=== PATIENT | female | born 1990 | race Caucasian/White ===

== ENCOUNTER 2019-10-09 10:34 | Observation (INO) | payer OTHER ==
[~2019-10-09] VITALS: Ht 172.7 cm; Wt 112.0 kg
== END 2019-10-09 11:50 | disposition home or self-care (01) ==
LOC: SPU 10:34
PROVIDERS: ADMIT Specialist; ATTEND Specialist
DX: Z34.83 Encounter for supervision of other normal pregnancy, third trimester (principal); Z3A.35 35 weeks gestation of pregnancy
CPT/HCPCS: G0378

== ENCOUNTER 2019-10-16 08:12 | Observation (INO) | payer OTHER ==
[~2019-10-16] VITALS: Ht 172.7 cm; Wt 112.5 kg
== END 2019-10-16 09:15 | disposition home or self-care (01) ==
LOC: SPU 08:12
PROVIDERS: ADMIT Specialist; ATTEND Specialist
DX: O24.913 Unspecified diabetes mellitus in pregnancy, third trimester (principal); O16.3 Unspecified maternal hypertension, third trimester; Z3A.35 35 weeks gestation of pregnancy
CPT/HCPCS: 59025; 81002; G0378

== ENCOUNTER 2019-10-23 08:41 | Observation (INO) | payer OTHER ==
[~2019-10-23] VITALS: Ht 172.7 cm; Wt 112.5 kg
[2019-10-23 09:57] LABS: BILIRUBIN,URINE NEGATIVE (NEGATIVE); BLOOD, URINE NEGATIVE (NEGATIVE); CLARITY/URINE SL CLOUDY (CLEAR); COLOR,URINE YELLOW (YELLOW); GLUCOSE,URINE NEGATIVE (NEGATIVE); KETONES,URINE NEGATIVE (NEGATIVE); LEUKOCYTE ESTERASE ,URINE NEGATIVE (NEGATIVE); NITRITE, URINE NEGATIVE (NEGATIVE); PROTEIN URINE 2+ (NEGATIVE); UROBILINOGEN,URINE 0.2 (0.2-1.0)
[2019-10-23 10:47] LABS: BACTERIA,URINE FEW /HPF (None Seen); RBC,URINE 0-3 /HPF (0-3); WBC,URINE 0-3 /HPF (0-3)
[2019-10-23] MEDS ORDERED: LABETALOL HCL 100 MG TABLET PO ONE (11:45)
[2019-10-23 12:23] LABS: BASOPHILS % (AUTO) 0.2 % (0.0-2.0); EOSINOPHILS # (AUTO) 0.1 K/uL (0.0-0.4); EOSINOPHILS % (AUTO) 0.8 % (0.0-4.0); HEMOGLOBIN 11.2 g/dL (12.0-16.0); LYMPHOCYTES # (AUTO) 2.4 K/uL (1.0-5.5); LYMPHOCYTES % (AUTO) 17.4 % (20.5-51.5); MEAN CORPUSCULAR HEMOGLOBIN 28 pg (27-31); MEAN CORPUSCULAR HGB CONC 33 % (32-36); MEAN CORPUSCULAR VOLUME 84 fL (79.0-98.0); MONOCYTES # (AUTO) 0.9 K/uL (0.0-1.0); MONOCYTES % (AUTO) 6.5 % (1.7-9.3); NEUTROPHILS # (AUTO) 10.3 K/uL (1.8-7.7); NEUTROPHILS % (AUTO) 75.1 % (40.0-70.0); PLATELET COUNT (AUTO) 324 K/uL (130-430); RED BLOOD CELL COUNT(AUTO) 4.05 MIL/uL (4.2-6.2); RED CELL DISTRIBUTION WIDTH 14.3 % (9.0-15.0); WHITE BLOOD COUNT (AUTO) 13.6 K/uL (4.8-10.8)
[2019-10-23 12:50] LABS: INR 0.9 (0.8-1.2); PROTHROMBIN TIME 9.1 SECS (9.5-12.5)
[2019-10-23 12:53] LABS: ALBUMIN 2.4 g/dL (3.4-4.8); CALCIUM 8.7 mg/dL (8.4-11.0); CREATININE 0.87 mg/dL (0.55-1.30); POTASSIUM 4.2 mmol/L (3.5-5.1); TOTAL BILIRUBIN 0.2 mg/dL (0.0-1.0); URIC ACID 7.1 mg/dL (2.4-7.0)
== END 2019-10-23 14:05 | disposition home or self-care (01) ==
LOC: SPU 08:41
PROVIDERS: ADMIT Specialist; ATTEND Specialist
DX: Z03.818 Encounter for observation for suspected exposure to other biological agents ruled out (principal); O24.419 Gestational diabetes mellitus in pregnancy, unspecified control; O13.3 Gestational [pregnancy-induced] hypertension without significant proteinuria, third trimester; O62.9 Abnormality of forces of labor, unspecified; Z3A.36 36 weeks gestation of pregnancy
CPT/HCPCS: 36415; 80053; 81000; 84550; 85025; 85610; 85730; G0378; U0003

== ENCOUNTER 2019-10-24 15:04 | Observation (INO) | payer OTHER ==
[~2019-10-24] VITALS: Ht 172.7 cm; Wt 112.5 kg
[2019-10-24 18:03] LABS: CREATININE 0.87 mg/dL (0.55-1.30)
[2019-10-24 23:53] LABS: CREATININE,URINE 82.1 MG/DL (30-125)
[2019-10-24 23:54] LABS: CREATININE CLEARANCE,URINE 110.8 ml/min (80-120); TPROTEIN U,24HR 1612.5 mg/24HR (0-130)
== END 2019-10-24 16:45 | disposition home or self-care (01) ==
LOC: SPU 15:04
PROVIDERS: ADMIT Specialist; ATTEND Specialist
DX: Z34.83 Encounter for supervision of other normal pregnancy, third trimester (principal); Z3A.37 37 weeks gestation of pregnancy
CPT/HCPCS: 36415; 82575; 84156; G0378

== ENCOUNTER 2019-10-27 13:33 | Inpatient (IN) | payer OTHER ==
[~2019-10-27] VITALS: Ht 0.1 cm; Wt 0.0 kg
[2019-10-27] MEDS ORDERED: CEFAZOLIN 2 GM IVPB PREMIX 50 ML IV ONE (14:30)
[2019-10-27 15:12] LABS: BASOPHILS % (AUTO) 0.3 % (0.0-2.0); EOSINOPHILS # (AUTO) 0.1 K/uL (0.0-0.4); EOSINOPHILS % (AUTO) 0.8 % (0.0-4.0); HEMATOCRIT 36.6 % (36-48); LYMPHOCYTES % (AUTO) 20.3 % (20.5-51.5); MEAN CORPUSCULAR HEMOGLOBIN 28 pg (27-31); MEAN CORPUSCULAR HGB CONC 33 % (32-36); MEAN CORPUSCULAR VOLUME 84 fL (79.0-98.0); MONOCYTES # (AUTO) 0.9 K/uL (0.0-1.0); MONOCYTES % (AUTO) 5.9 % (1.7-9.3); NEUTROPHILS # (AUTO) 10.7 K/uL (1.8-7.7); NEUTROPHILS % (AUTO) 72.7 % (40.0-70.0); PLATELET COUNT (AUTO) 365 K/uL (130-430); RED BLOOD CELL COUNT(AUTO) 4.35 MIL/uL (4.2-6.2); RED CELL DISTRIBUTION WIDTH 14.7 % (9.0-15.0); WHITE BLOOD COUNT (AUTO) 14.7 K/uL (4.8-10.8)
[2019-10-27 17:08] LABS: BILIRUBIN,URINE NEGATIVE (NEGATIVE); CLARITY/URINE CLEAR (CLEAR); COLOR,URINE YELLOW (YELLOW); GLUCOSE,URINE NEGATIVE (NEGATIVE); KETONES,URINE NEGATIVE (NEGATIVE); LEUKOCYTE ESTERASE ,URINE NEGATIVE (NEGATIVE); NITRITE, URINE NEGATIVE (NEGATIVE); PROTEIN URINE 2+ (NEGATIVE); UROBILINOGEN,URINE 0.2 (0.2-1.0)
[2019-10-27 17:15] LABS: BLOOD, URINE TRACE (NEGATIVE)
[2019-10-27 17:26] LABS: BACTERIA,URINE FEW /HPF (None Seen); MUCUS,URINE None Seen /LPF (None Seen); RBC,URINE 0-3 /HPF (0-3)
[2019-10-27] MEDS ORDERED: NALBUPHINE HCL 10 MG/ML AMP IVP PRN (18:00)
[2019-10-27] MEDS ORDERED: DIPHENHYDRAMINE INJ 50 MG/ML VIAL IVP PRN (18:00)
[2019-10-27] MEDS ORDERED: KETOROLAC TROMETHAMINE 60 MG/2 ML VIAL IM PRN (18:00)
[2019-10-27] MEDS ORDERED: fentaNYL CITRATE/PF 100 MCG/2 ML AMP IVP PRN ×2 (18:00)
[2019-10-27] MEDS ORDERED: NALOXONE HCL 0.4 MG/ML AMP (NARCAN) IVP PRN ×2 (18:00)
[2019-10-27] MEDS ORDERED: MORPHINE SULFATE 10MG/10ML PF AMP SP SCH (18:00)
[2019-10-27 18:57] VITALS: BP_SYST 139
[2019-10-27] MEDS ORDERED: OXYTOCIN/0.9 % SODIUM CHLORIDE 1,000 ML IV ONE ×2 (20:08→21:02)
[2019-10-27] MEDS: LABETALOL HCL 100 MG TABLET PO SCH (20:57)
[2019-10-27] MEDS ORDERED: SENNOSIDES/DOCUSATE SODIUM 1 TAB TABLET(SENOKOT-S) PO PRN (21:15)
[2019-10-27] MEDS ORDERED: TEMAZEPAM 15 MG CAPSULE PO PRN (21:15)
[2019-10-27] MEDS ORDERED: BISACODYL 10 MG/SUPPOSITORY RC PRN (21:15)
[2019-10-27] MEDS ORDERED: HYDROcodone/ACETAMIN 5-325 MG TAB (NORCO/ VICODIN) PO PRN (21:15)
[2019-10-27] MEDS ORDERED: OXYCODONE/ACETAMINOPHEN 5-325 TABLET PO PRN ×2 (21:15)
[2019-10-27] MEDS ORDERED: DIPH-TET-PERTUS Vaccine 0.5 ML VIAL (ADACEL) I.M. PRN (21:15)
[2019-10-27] MEDS ORDERED: MEASLES,MUMPS&RUBELLA VACC/PF 12500 UNIT/0.5 ML VIAL SUBQ PRN (21:15)
[2019-10-27] MEDS ORDERED: DOCUSATE SODIUM 100 MG CAPSULE PO PRN (21:15)
[2019-10-27] MEDS ORDERED: LANOLIN 7 GM OINT. TP PRN (21:15)
[2019-10-27] MEDS ORDERED: ANUSOL 1 EA SUPP.RECT (PREPARATION H) RC PRN (21:15)
[2019-10-27] MEDS: ONDANSETRON HCL 4 MG/2 ML VIAL IVP PRN (23:21)
[2019-10-28] MEDS ORDERED: LABETALOL 100 MG/ 20ML VIAL IVP ONE
[2019-10-28] MEDS: LR 1,000 ML IV SCH ×2 (04:30→14:25)
[2019-10-28] MEDS: ONDANSETRON HCL 4 MG/2 ML VIAL IVP PRN (07:31)
[2019-10-28 08:02] LABS: BASOPHILS % (AUTO) 0.2 % (0.0-2.0); EOSINOPHILS % (AUTO) 0.2 % (0.0-4.0); HEMATOCRIT 33.4 % (36-48); HEMOGLOBIN 11.1 g/dL (12.0-16.0); LYMPHOCYTES # (AUTO) 1.9 K/uL (1.0-5.5); LYMPHOCYTES % (AUTO) 12.4 % (20.5-51.5); MEAN CORPUSCULAR HEMOGLOBIN 28 pg (27-31); MEAN CORPUSCULAR HGB CONC 33 % (32-36); MEAN CORPUSCULAR VOLUME 85 fL (79.0-98.0); MONOCYTES % (AUTO) 6.4 % (1.7-9.3); NEUTROPHILS # (AUTO) 12.6 K/uL (1.8-7.7); NEUTROPHILS % (AUTO) 80.8 % (40.0-70.0); PLATELET COUNT (AUTO) 323 K/uL (130-430); RED BLOOD CELL COUNT(AUTO) 3.92 MIL/uL (4.2-6.2); RED CELL DISTRIBUTION WIDTH 15.1 % (9.0-15.0); WHITE BLOOD COUNT (AUTO) 15.6 K/uL (4.8-10.8)
[2019-10-28] MEDS ORDERED: metFORMIN HCL 500 MG TABLET PO SCH (09:00)
[2019-10-28] MEDS: LABETALOL HCL 100 MG TABLET PO SCH ×2 (09:05→19:58)
[2019-10-28] MEDS: metFORMIN HCL 500 MG TABLET PO SCH ×2 (10:07→19:59)
[2019-10-28] MEDS: SIMETHICONE 80 MG TAB.CHEW PO PRN ×3 (13:11→19:57)
[2019-10-28] MEDS: IBUPROFEN 600 MG TABLET PO SCH ×2 (13:19→18:20)
[2019-10-29] MEDS: IBUPROFEN 600 MG TABLET PO SCH ×2 (05:45)
[2019-10-29] MEDS: LABETALOL HCL 100 MG TABLET PO SCH (09:31)
[2019-10-29] MEDS: metFORMIN HCL 500 MG TABLET PO SCH (09:37)
== END 2019-10-29 10:30 | disposition home or self-care (01) | DRG 786 ==
LOC: SPU 14:20
PROVIDERS: ADMIT Specialist; ATTEND Specialist
PROC: 10D00Z1 Extraction of Products of Conception, Low, Open Approach (ICD-10-PCS; principal; 2019-10-27 14:00)
DX: O36.63X0 Maternal care for excessive fetal growth, third trimester, not applicable or unspecified (principal); O24.12 Pre-existing type 2 diabetes mellitus, in childbirth; O44.13 Complete placenta previa with hemorrhage, third trimester; O40.3XX0 Polyhydramnios, third trimester, not applicable or unspecified; O99.214 Obesity complicating childbirth; E66.9 Obesity, unspecified; O69.9XX0 Labor and delivery complicated by cord complication, unspecified, not applicable or unspecified; E11.9 Type 2 diabetes mellitus without complications; O16.4 Unspecified maternal hypertension, complicating childbirth; Z37.0 Single live birth; Z3A.37 37 weeks gestation of pregnancy; Z79.4 Long term (current) use of insulin
CPT/HCPCS: 36415; 81000-TC; 82947-TC; 82962; 85025; 86886; 86900; 86901; 94760; J0690; J1200; J2405; J2590; J3490; J7120

== ENCOUNTER 2020-02-03 09:31 | Outpatient (CLI) | payer OTHER ==
[2020-02-03 10:25] LABS: BASOPHILS % (AUTO) 0.4 % (0.0-2.0); EOSINOPHILS # (AUTO) 0.2 K/uL (0.0-0.4); EOSINOPHILS % (AUTO) 1.5 % (0.0-4.0); HEMATOCRIT 35.6 % (36-48); HEMOGLOBIN 11.8 g/dL (12.0-16.0); LYMPHOCYTES # (AUTO) 2.9 K/uL (1.0-5.5); LYMPHOCYTES % (AUTO) 25.2 % (20.5-51.5); MEAN CORPUSCULAR HEMOGLOBIN 27 pg (27-31); MEAN CORPUSCULAR HGB CONC 33 % (32-36); MEAN CORPUSCULAR VOLUME 81 fL (79.0-98.0); MONOCYTES # (AUTO) 0.6 K/uL (0.0-1.0); MONOCYTES % (AUTO) 5.6 % (1.7-9.3); NEUTROPHILS # (AUTO) 7.7 K/uL (1.8-7.7); NEUTROPHILS % (AUTO) 67.3 % (40.0-70.0); PLATELET COUNT (AUTO) 373 K/uL (130-430); RED BLOOD CELL COUNT(AUTO) 4.42 MIL/uL (4.2-6.2); RED CELL DISTRIBUTION WIDTH 14.3 % (9.0-15.0); WHITE BLOOD COUNT (AUTO) 11.5 K/uL (4.8-10.8)
[2020-02-03 10:43] LABS: ALBUMIN 3.6 g/dL (3.4-4.8); CALCIUM 8.5 mg/dL (8.4-11.0); CREATININE 0.82 mg/dL (0.55-1.30); POTASSIUM 3.7 mmol/L (3.5-5.1); TOTAL BILIRUBIN 0.4 mg/dL (0.0-1.0)
== END 2020-02-03 20:35 | disposition home or self-care (01) ==
LOC: SLB 09:31
PROVIDERS: ATTEND Anesthesiology Pain Medicine
DX: I10 Essential (primary) hypertension (principal); E11.9 Type 2 diabetes mellitus without complications; E66.09 Other obesity due to excess calories
CPT/HCPCS: 36415; 80053; 82043; 82570; 83036; 85025

== ENCOUNTER 2021-02-04 09:15 | Observation (INO) | payer OTHER ==
[~2021-02-04] VITALS: Ht 172.7 cm; Wt 120.2 kg
== END 2021-02-04 10:45 | disposition home or self-care (01) ==
LOC: SPU 09:15
PROVIDERS: ADMIT Specialist; ATTEND Specialist
DX: O26.893 Other specified pregnancy related conditions, third trimester (principal); R03.0 Elevated blood-pressure reading, without diagnosis of hypertension; O24.419 Gestational diabetes mellitus in pregnancy, unspecified control; Z3A.33 33 weeks gestation of pregnancy
CPT/HCPCS: 59025; 81002; G0378; G0379

== ENCOUNTER 2021-02-23 14:07 | Observation (INO) | payer OTHER, SELFPAY ==
[~2021-02-23] VITALS: Ht 167.6 cm; Wt 120.2 kg
[2021-02-23 15:26] VITALS: BP_SYST 145
[2021-02-23] MEDS ORDERED: COMMUNICATION ORDER XX SCH (17:15)
[2021-02-23] MEDS: INSULIN LISPRO PROT SUBCUT SCH ×2 (17:58→22:10)
[2021-02-23] MEDS: [UNRECOGNIZED DRUG - OTHER] SUBCUT SCH ×2 (17:58→22:10)
[2021-02-23] MEDS: metFORMIN HCL 500 MG TABLET PO SCH (22:10)
[2021-02-23] MEDS: LABETALOL HCL 100 MG TABLET PO SCH (22:10)
[2021-02-24] MEDS: [UNRECOGNIZED DRUG - OTHER] SUBCUT SCH (08:32)
[2021-02-24] MEDS: INSULIN LISPRO PROT SUBCUT SCH (08:32)
[2021-02-24] MEDS: metFORMIN HCL 500 MG TABLET PO SCH (08:35)
[2021-02-24] MEDS: LABETALOL HCL 100 MG TABLET PO SCH (08:36)
== END 2021-02-24 12:50 | disposition home or self-care (01) ==
LOC: SPU 14:07
PROVIDERS: ADMIT Specialist; ATTEND Specialist
DX: O36.8330 Maternal care for abnormalities of the fetal heart rate or rhythm, third trimester, not applicable or unspecified (principal); Z20.822 Contact with and (suspected) exposure to COVID-19; O13.3 Gestational [pregnancy-induced] hypertension without significant proteinuria, third trimester; O24.414 Gestational diabetes mellitus in pregnancy, insulin controlled; Z3A.36 36 weeks gestation of pregnancy; Z79.4 Long term (current) use of insulin
CPT/HCPCS: 36415; 59025; 81002; 82962 ×2; 87426; 96372 ×2; G0378 ×2

== ENCOUNTER 2021-02-28 12:14 | Observation (INO) | payer OTHER, SELFPAY ==
[~2021-02-28] VITALS: Ht 172.7 cm; Wt 120.2 kg
[2021-02-28] MEDS ORDERED: LABETALOL HCL 100 MG TABLET PO ONE (14:45)
== END 2021-02-28 16:40 | disposition home or self-care (01) ==
LOC: SPU 12:14
PROVIDERS: ADMIT Specialist; ATTEND Specialist
DX: O36.8130 Decreased fetal movements, third trimester, not applicable or unspecified (principal); O24.419 Gestational diabetes mellitus in pregnancy, unspecified control; O26.893 Other specified pregnancy related conditions, third trimester; R03.0 Elevated blood-pressure reading, without diagnosis of hypertension; Z3A.37 37 weeks gestation of pregnancy
CPT/HCPCS: 82962; G0378; 59025; 81002

== ENCOUNTER 2021-03-04 09:25 | Inpatient (IN) | payer OTHER, SELFPAY ==
[~2021-03-04] VITALS: Ht 172.7 cm; Wt 119.3 kg
[2021-03-04 11:14] LABS: BASOPHILS % (AUTO) 0.3 % (0.0-2.0); EOSINOPHILS # (AUTO) 0.1 K/uL (0.0-0.4); EOSINOPHILS % (AUTO) 0.8 % (0.0-4.0); HEMATOCRIT 35.3 % (36-48); HEMOGLOBIN 12.1 g/dL (12.0-16.0); LYMPHOCYTES # (AUTO) 1.9 K/uL (1.0-5.5); MEAN CORPUSCULAR HEMOGLOBIN 29 pg (27-31); MEAN CORPUSCULAR HGB CONC 34 % (32-36); MEAN CORPUSCULAR VOLUME 84 fL (79.0-98.0); MONOCYTES # (AUTO) 0.7 K/uL (0.0-1.0); MONOCYTES % (AUTO) 8.5 % (1.7-9.3); NEUTROPHILS # (AUTO) 5.2 K/uL (1.8-7.7); NEUTROPHILS % (AUTO) 66.4 % (40.0-70.0); PLATELET COUNT (AUTO) 290 K/uL (130-430); RED CELL DISTRIBUTION WIDTH 14.1 % (9.0-15.0); WHITE BLOOD COUNT (AUTO) 7.9 K/uL (4.8-10.8)
[2021-03-04 11:30] LABS: CALCIUM 8.6 mg/dL (8.4-11.0); CREATININE 1.12 mg/dL (0.55-1.30); POTASSIUM 4.3 mmol/L (3.5-5.1); TOTAL BILIRUBIN 0.2 mg/dL (0.0-1.0)
[2021-03-04 11:31] LABS: ALBUMIN 2.3 g/dL (3.4-4.8); URIC ACID 8.4 mg/dL (2.4-7.0)
[2021-03-04] MEDS ORDERED: TEMAZEPAM 15 MG CAPSULE PO PRN (13:30)
[2021-03-04] MEDS: LABETALOL HCL 100 MG TABLET PO SCH ×2 (15:15→20:56)
[2021-03-04] MEDS ORDERED: INSULIN NPH/REGULAR 70-30, 100 UNITS/ML, 10 ML VIAL ONE (17:52)
[2021-03-04] MEDS: INSULIN NPH/REGULAR 70-30, 100 UNITS/ML, 10 ML VIAL SUBCUT SCH (18:31)
[2021-03-04] MEDS: metFORMIN HCL 500 MG TABLET PO SCH (18:33)
[2021-03-04 23:32] VITALS: BP_SYST 148
[2021-03-05 06:44] LABS: BASOPHILS % (AUTO) 0.4 % (0.0-2.0); EOSINOPHILS # (AUTO) 0.1 K/uL (0.0-0.4); HEMATOCRIT 36.5 % (36-48); HEMOGLOBIN 12.3 g/dL (12.0-16.0); LYMPHOCYTES # (AUTO) 2.7 K/uL (1.0-5.5); LYMPHOCYTES % (AUTO) 29.2 % (20.5-51.5); MEAN CORPUSCULAR HEMOGLOBIN 28 pg (27-31); MEAN CORPUSCULAR HGB CONC 34 % (32-36); MEAN CORPUSCULAR VOLUME 84 fL (79.0-98.0); MONOCYTES # (AUTO) 0.7 K/uL (0.0-1.0); MONOCYTES % (AUTO) 7.2 % (1.7-9.3); NEUTROPHILS # (AUTO) 5.7 K/uL (1.8-7.7); NEUTROPHILS % (AUTO) 62.2 % (40.0-70.0); PLATELET COUNT (AUTO) 287 K/uL (130-430); RED BLOOD CELL COUNT(AUTO) 4.36 MIL/uL (4.2-6.2); RED CELL DISTRIBUTION WIDTH 14.4 % (9.0-15.0); WHITE BLOOD COUNT (AUTO) 9.1 K/uL (4.8-10.8)
[2021-03-05 06:58] LABS: ALBUMIN 2.2 g/dL (3.4-4.8); CALCIUM 8.2 mg/dL (8.4-11.0); CREATININE 0.92 mg/dL (0.55-1.30); POTASSIUM 4.3 mmol/L (3.5-5.1); TOTAL BILIRUBIN 0.2 mg/dL (0.0-1.0)
[2021-03-05] MEDS: LABETALOL HCL 100 MG TABLET PO SCH ×3 (07:26→21:00)
[2021-03-05] MEDS ORDERED: PRENATAL VITS W-CA,FE,FA(<1MG) (PRENATAL) TABLET PO SCH (09:00)
[2021-03-05] MEDS ORDERED: CEFAZOLIN 2 GM IVPB PREMIX 50 ML IV ONE (11:30)
[2021-03-05 11:48] LABS: BILIRUBIN,URINE NEGATIVE (NEGATIVE); BLOOD, URINE NEGATIVE (NEGATIVE); CLARITY/URINE CLEAR (CLEAR); COLOR,URINE YELLOW (YELLOW); GLUCOSE,URINE NEGATIVE (NEGATIVE); KETONES,URINE NEGATIVE (NEGATIVE); LEUKOCYTE ESTERASE ,URINE NEGATIVE (NEGATIVE); NITRITE, URINE NEGATIVE (NEGATIVE); PROTEIN URINE 2+ (NEGATIVE); UROBILINOGEN,URINE 0.2 (0.2-1.0)
[2021-03-05 12:34] LABS: BACTERIA,URINE FEW /HPF (None Seen); MUCUS,URINE 1+ /LPF (None Seen)
[2021-03-05] MEDS: INSULIN NPH/REGULAR 70-30, 100 UNITS/ML, 10 ML VIAL SUBCUT SCH (12:40)
[2021-03-05] MEDS ORDERED: DIPHENHYDRAMINE INJ 50 MG/ML VIAL IM PRN (14:45)
[2021-03-05] MEDS ORDERED: MORPHINE SULFATE 10MG/10ML PF AMP SP SCH (14:45)
[2021-03-05] MEDS ORDERED: NALOXONE HCL 0.4 MG/ML AMP (NARCAN) IVP PRN ×2 (14:45→15:15)
[2021-03-05] MEDS ORDERED: ONDANSETRON HCL 4 MG/2 ML VIAL IVP PRN (14:45)
[2021-03-05] MEDS ORDERED: KETOROLAC TROMETHAMINE 60 MG/2 ML VIAL IM PRN (14:45)
[2021-03-05] MEDS ORDERED: MEASLES,MUMPS&RUBELLA VACC/PF 12500 UNIT/0.5 ML VIAL SUBQ PRN (15:15)
[2021-03-05] MEDS ORDERED: LR 1,000 ML IV SCH (15:15)
[2021-03-05] MEDS ORDERED: OXYTOCIN/0.9 % SODIUM CHLORIDE 1,000 ML IV SCH (15:15)
[2021-03-05] MEDS ORDERED: RHO(D) IMMUNE GLOBULIN/MALTOSE 1500 UNITS/1.3 ML (WINHRO) IM PRN (15:15)
[2021-03-05] MEDS ORDERED: HYDROcodone/ACETAMIN 5-325 MG TAB (NORCO/ VICODIN) PO PRN (15:15)
[2021-03-05] MEDS ORDERED: TEMAZEPAM 15 MG CAPSULE PO PRN (15:15)
[2021-03-05] MEDS ORDERED: BISACODYL 10 MG/SUPPOSITORY RC PRN (15:15)
[2021-03-05] MEDS ORDERED: ANUSOL 1 EA SUPP.RECT (PREPARATION H) RC PRN (15:15)
[2021-03-05] MEDS ORDERED: LANOLIN 7 GM OINT. TP PRN (15:15)
[2021-03-05] MEDS ORDERED: DIPH-TET-PERTUS Vaccine 0.5 ML VIAL (ADACEL) I.M. PRN (15:15)
[2021-03-05] MEDS ORDERED: OXYCODONE/ACETAMINOPHEN 5-325 TABLET PO PRN (15:15)
[2021-03-05] MEDS ORDERED: METOCLOPRAMIDE HCL 10 MG/2 ML VIAL ONE (15:20)
[2021-03-05] MEDS ORDERED: WATER FOR IRRIGATION,STERILE 1,000 ML IRRIG.SOLN IR ONE (15:20)
[2021-03-05] MEDS ORDERED: ONDANSETRON HCL 4 MG/2 ML VIAL ONE (15:20)
[2021-03-05] MEDS ORDERED: NS IRRIG SOLN 1000 ML IR ONE (15:20)
[2021-03-05] MEDS ORDERED: BUPIVACAINE /PF 0.75% 10 ML VIAL INJ ONE (15:20)
[2021-03-05] MEDS ORDERED: LR 1,000 ML IV.SOLN IV ONE (15:20)
[2021-03-05] MEDS ORDERED: OXYTOCIN/0.9 % SODIUM CHLORIDE 20 UNITS/1,000 ML BAG IV ONE (15:20)
[2021-03-05] MEDS ORDERED: OXYTOCIN 10 UNIT/ML VIAL ONE (15:20)
[2021-03-05] MEDS ORDERED: MORPHINE SULFATE 10MG/10ML PF AMP ONE (15:20)
[2021-03-05] MEDS ORDERED: HYDROmorphone 1 MG/ML INJ. CARTRIDGE ONE (16:27)
[2021-03-05] MEDS ORDERED: HYDROmorphone 1 MG/ML INJ. CARTRIDGE IVP PRN (16:30)
[2021-03-05] MEDS: CEFAZOLIN 1 GM IVPB PREMIX 50 ML IV SCH (18:35)
[2021-03-05] MEDS: SENNOSIDES/DOCUSATE SODIUM 1 TAB TABLET(SENOKOT-S) PO SCH (21:00)
[2021-03-05] MEDS: DOCUSATE SODIUM 100 MG CAPSULE PO SCH (21:00)
[2021-03-05] MEDS: INSULIN NPH/REGULAR 70-30, 100 UNITS/ML, 10 ML VIAL SUBCUT PRN (22:18)
[2021-03-06] MEDS: KETOROLAC TROMETHAMINE 30 MG VIAL IVP SCH ×4 (00:19→17:59)
[2021-03-06] MEDS: CEFAZOLIN 1 GM IVPB PREMIX 50 ML IV SCH ×2 (00:20→06:18)
[2021-03-06] MEDS: INSULIN NPH/REGULAR 70-30, 100 UNITS/ML, 10 ML VIAL SUBCUT SCH ×2 (07:00→07:40)
[2021-03-06 07:08] LABS: BASOPHILS % (AUTO) 0.4 % (0.0-2.0); EOSINOPHILS % (AUTO) 0.1 % (0.0-4.0); HEMATOCRIT 29.2 % (36-48); HEMOGLOBIN 9.9 g/dL (12.0-16.0); LYMPHOCYTES # (AUTO) 2.3 K/uL (1.0-5.5); LYMPHOCYTES % (AUTO) 21.2 % (20.5-51.5); MEAN CORPUSCULAR HEMOGLOBIN 29 pg (27-31); MEAN CORPUSCULAR HGB CONC 34 % (32-36); MEAN CORPUSCULAR VOLUME 84 fL (79.0-98.0); MONOCYTES # (AUTO) 0.8 K/uL (0.0-1.0); MONOCYTES % (AUTO) 7.2 % (1.7-9.3); NEUTROPHILS # (AUTO) 7.7 K/uL (1.8-7.7); NEUTROPHILS % (AUTO) 71.1 % (40.0-70.0); PLATELET COUNT (AUTO) 277 K/uL (130-430); RED BLOOD CELL COUNT(AUTO) 3.47 MIL/uL (4.2-6.2); RED CELL DISTRIBUTION WIDTH 14.8 % (9.0-15.0); WHITE BLOOD COUNT (AUTO) 10.8 K/uL (4.8-10.8)
[2021-03-06] MEDS: LABETALOL HCL 100 MG TABLET PO SCH ×3 (09:21→21:01)
[2021-03-06] MEDS: DOCUSATE SODIUM 100 MG CAPSULE PO SCH ×2 (09:22→20:46)
[2021-03-06] MEDS: SIMETHICONE 80 MG TAB.CHEW PO PRN ×2 (09:22→20:46)
[2021-03-06] MEDS: metFORMIN HCL 500 MG TABLET PO SCH ×2 (09:26→18:03)
[2021-03-06] MEDS: SENNOSIDES/DOCUSATE SODIUM 1 TAB TABLET(SENOKOT-S) PO SCH (20:46)
[2021-03-06] MEDS: INSULIN NPH/REGULAR 70-30, 100 UNITS/ML, 10 ML VIAL SUBCUT PRN (20:52)
[2021-03-07] MEDS: IBUPROFEN 600 MG TABLET PO SCH ×3 (00:23→12:07)
[2021-03-07] MEDS: metFORMIN HCL 500 MG TABLET PO SCH (08:18)
[2021-03-07] MEDS: DOCUSATE SODIUM 100 MG CAPSULE PO SCH (08:19)
[2021-03-07] MEDS: LABETALOL HCL 100 MG TABLET PO SCH (09:37)
[2021-03-07] MEDS ORDERED: INSULIN NPH/REGULAR 70-30, 100 UNITS/ML, 10 ML VIAL SUBCUT ONE (10:30)
[2021-03-07] MEDS: INSULIN NPH/REGULAR 70-30, 100 UNITS/ML, 10 ML VIAL SUBCUT SCH (10:48)
[2021-03-07] MEDS: OXYCODONE/ACETAMINOPHEN *10*mg/325 mg TABLET PO PRN ×2 (10:49→16:58)
[2021-03-07] MEDS: SIMETHICONE 80 MG TAB.CHEW PO PRN (12:07)
== END 2021-03-07 17:04 | disposition home or self-care (01) | DRG 783 ==
LOC: SPU 09:25 → OBSVTOIN 09:25 → SPU 13:57
PROVIDERS: ADMIT Specialist; ATTEND Specialist
PROC: 10D00Z1 Extraction of Products of Conception, Low, Open Approach (ICD-10-PCS; principal; 2021-03-06)
PROC: 0UL70CZ Occlusion of Bilateral Fallopian Tubes with Extraluminal Device, Open Approach (ICD-10-PCS; 2021-03-06)
DX: O34.211 Maternal care for low transverse scar from previous cesarean delivery (principal); U07.1 COVID-19; O98.52 Other viral diseases complicating childbirth; O24.429 Gestational diabetes mellitus in childbirth, unspecified control; O99.214 Obesity complicating childbirth; O13.4 Gestational [pregnancy-induced] hypertension without significant proteinuria, complicating childbirth; O14.94 Unspecified pre-eclampsia, complicating childbirth; Z37.0 Single live birth; Z30.2 Encounter for sterilization; Z3A.38 38 weeks gestation of pregnancy
CPT/HCPCS: 36415; 80053; 81000; 82962; 84550; 85025; 85384; 86592; 86886; 86900; 86901; 90715; J0690; J1170; J1815; J1885; J2274; J2405; J2590; J2765; J3490; J7120

== ENCOUNTER 2023-05-06 15:47 | Emergency (ER) | payer OTHER ==
[~2023-05-06] VITALS: Ht 172.7 cm; Wt 116.1 kg
[2023-05-06 16:04] VITALS: BP_SYST 174; PULSE 106; RESP 19; TEMP 98.7; O2SAT 98
[2023-05-06 18:01] LABS: ANION GAP 12 (5-15); CALCIUM 9.8 mg/dL (8.4-11.0); CARBON DIOXIDE 22 mmol/L (23-29); CHLORIDE 101 mmol/L (98-107); CREATININE 1.22 mg/dL (0.55-1.30); GFR AFRICAN AMERICAN 66 mL/min (>90); GLUCOSE 297 mg/dL (74-106); POTASSIUM 4.1 mmol/L (3.5-5.1); SODIUM SERUM 135 mmol/L (136-145); UREA NITROGEN, BLOOD 24 mg/dL (8-21)
[2023-05-06 18:05] LABS: GFR NON AFRICAN-AMERICAN 54 mL/min (>90)
[2023-05-06 18:19] LABS: BASOPHILS # (AUTO) 0.1 K/uL (0.0-0.2); BASOPHILS % (AUTO) 0.4 % (0.0-2.0); EOSINOPHILS # (AUTO) 0.2 K/uL (0.0-0.4); EOSINOPHILS % (AUTO) 1.9 % (0.0-4.0); HEMATOCRIT 39.1 % (36-48); HEMOGLOBIN 13.2 g/dL (12.0-16.0); LYMPHOCYTES % (AUTO) 24.5 % (20.5-51.5); MEAN CORPUSCULAR HEMOGLOBIN 29 pg (27-31); MEAN CORPUSCULAR HGB CONC 34 % (32-36); MEAN CORPUSCULAR VOLUME 85 fL (79.0-98.0); MONOCYTES # (AUTO) 0.6 K/uL (0.0-1.0); MONOCYTES % (AUTO) 5.2 % (1.7-9.3); NEUTROPHILS # (AUTO) 8.2 K/uL (1.8-7.7); PLATELET COUNT (AUTO) 412 K/uL (130-430); RED CELL DISTRIBUTION WIDTH 13.4 % (9.0-15.0); WHITE BLOOD COUNT (AUTO) 12.1 K/uL (4.8-10.8)
[2023-05-06] MEDS ORDERED: OMEP-268 PO (21:14)
[2023-05-06 21:25] VITALS: BP_SYST 168; PULSE 88; RESP 19; TEMP 98.7; O2SAT 98
== END 2023-05-06 21:25 | disposition home or self-care (01) ==
LOC: SED 15:47
DX: R07.9 Chest pain, unspecified (principal); R20.2 Paresthesia of skin; E11.9 Type 2 diabetes mellitus without complications; I10 Essential (primary) hypertension; Z79.899 Other long term (current) drug therapy
CPT/HCPCS: 36415; 71045; 80048; 84484; 85025; 85379; 93005; 99285

== ENCOUNTER 2023-06-06 12:51 | Outpatient (CLI) | payer OTHER ==
[~2023-06-06 12:51] MED LIST: OMEP-268 PO
== END 2023-06-06 16:01 | disposition home or self-care (01) ==
LOC: SUS 12:51
PROVIDERS: ATTEND Specialist
DX: N64.4 Mastodynia (principal); N64.89 Other specified disorders of breast
CPT/HCPCS: 76641